=== PATIENT | male | born 1995 | race Caucasian/White ===

== ENCOUNTER 2018-02-18 21:45 | Emergency (ER) | payer OTHER ==
[~2018-02-18 21:45] MED LIST: ACET-1718 PO; CLIN300C99 PO; HYDR25SU34 RC; IBUP600T22 PO; ONDA4TAB PO; OXYC-865 PO; PRED20TA6 PO; ROBC PO
--- NOTE | 2018-02-18 21:52 | ER Report ---
History and Physical Time Seen By MD: 21:49 HPI/ROS CHIEF COMPLAINT: Left testicular pain HISTORY OF PRESENT ILLNESS: 22-year-old male presents ambulatory to the ER complaining of left testicular pain intermittently for one week since he had left shoulder surgery for repair of a labral tear. Patient's orthopedic doctor advises no NSAIDs. Patient notes no dysuria, no hematuria. REVIEW OF SYSTEMS: Respiratory: No cough, no dyspnea. Cardiovascular: No chest pain, no palpitations. Gastrointestinal: No vomiting, no abdominal pain. Musculoskeletal: No back pain. Allergies: Coded Allergies: No Known Drug Allergies (Unverified , 10/09/16) Home Meds Active Scripts Cephalexin Monohydrate (CEPHALEXIN) 500 Mg Cap, 500 MG PO TID for infection, #20 CAP TAKE 1 CAPSULE BY MOUTH EVERY SIX HOURS Prov:TUAN NIÑO DO 02/18/18 Oxycodone Hcl/Acetaminophen (PERCOCET 5-325 MG TABLET) 1 Each Tablet, 1 EACH PO Q4-6H PRN for PAIN, #20 Prov:TUAN NIÑO DO 10/09/16 Reviewed Nurses Notes: Yes Old Medical Records Reviewed: Yes Hx Smoking: Yes Smoking Status: Never Smoker Exposure to Second Hand Smoke?: No Hx Substance Use Disorder: No Hx Alcohol Use: No Constitutional Vital Sign - Last 24 Hours 02/18/18 02/18/18 02/18/18 02/18/18 21:45 21:50 21:55 22:00 Temp 98.8 Pulse ??? 112 Resp 17 B/P (MAP) 146/76 146/76 (99) 139/78 (98) Pulse Ox 93 O2 Delivery Room Air 02/18/18 02/18/18 02/18/18 02/18/18 22:15 22:30 22:35 23:05 Pulse 106 104 108 B/P (MAP) 130/69 (89) Pulse Ox 89 90 92 02/18/18 02/18/18 02/18/18 23:20 23:30 23:35 Pulse 107 105 B/P (MAP) 112/67 (82) Pulse Ox 91 90 Physical Exam Vital signs stable, afebrile, pulse ox normal General Appearance: The patient is alert, has no immediate need for airway protection and no current signs of toxicity. Vital signs stable, afebrile, pulse ox normal Eyes: Pupils equal and round no injection. Respiratory: Chest is non tender, lungs are clear to auscultation. Cardiac: regular rate and rhythm Gastrointestinal: Abdomen is soft and non tender, no masses, bowel sounds normal. Genital: Circumcised male genitalia. There is tenderness of the left testicular area, especially over the epididymis. Steric reflexes intact. There is no meatal discharge. There is no inguinal lymphadenopathy. Musculoskeletal: Neck: Neck is supple and non tender. Extremities have full range of motion and are non tender. Skin: No rashes or lesions. DIFFERENTIAL DIAGNOSIS: After history and physical exam differential diagnosis was considered for testicular pain including but not limited to epididymitis, orchitis, referred pain from kidney stone, inguinal hernia, and torsion of the testicle. Medical Decision Making Data Points Laboratory Hematology Test 02/18/18 21:50 Urine Color Yellow Urine Clarity Clear Urine pH 5.0 pH (4.8-9.5) Urine Specific [place] 1.026 Urine Protein Negative mg/dL (NEGATIVE) Urine Glucose (UA) Negative mg/dL (NEGATIVE) Urine Ketones Negative mg/dL (NEGATIVE) Urine Blood Negative (NEGATIVE) Urine Nitrite Negative (NEGATIVE) Urine Bilirubin Negative (NEGATIVE) Urine Urobilinogen 2.0 mg/dL (0.2-1.9) Urine Leukocyte Esterase Negative (NEGATIVE) Urine RBC None /HPF (0-2/HPF) Urine WBC <1 /HPF (0-5/HPF) Urine Squamous Epithelial Cells None /LPF (</=FEW) Urine Bacteria Negative /HPF (NONE-FEW) Urine Mucus Few /HPF (NONE-FEW) Chemistry Test 02/18/18 21:50 Urine Color Yellow Urine Clarity Clear Urine pH 5.0 pH (4.8-9.5) Urine Specific [place] 1.026 Urine Protein Negative mg/dL (NEGATIVE) Urine Glucose (UA) Negative mg/dL (NEGATIVE) Urine Ketones Negative mg/dL (NEGATIVE) Urine Blood Negative (NEGATIVE) Urine Nitrite Negative (NEGATIVE) Urine Bilirubin Negative (NEGATIVE) Urine Urobilinogen 2.0 mg/dL (0.2-1.9) Urine Leukocyte Esterase Negative (NEGATIVE) Urine RBC None /HPF (0-2/HPF) Urine WBC <1 /HPF (0-5/HPF) Urine Squamous Epithelial Cells None /LPF (</=FEW) Urine Bacteria Negative /HPF (NONE-FEW) Urine Mucus Few /HPF (NONE-FEW) Urinalysis Test 02/18/18 21:50 Urine Color Yellow Urine Clarity Clear Urine pH 5.0 pH (4.8-9.5) Urine Specific [place] 1.026 Urine Protein Negative mg/dL (NEGATIVE) Urine Glucose (UA) Negative mg/dL (NEGATIVE) Urine Ketones Negative mg/dL (NEGATIVE) Urine Blood Negative (NEGATIVE) Urine Nitrite Negative (NEGATIVE) Urine Bilirubin Negative (NEGATIVE) Urine Urobilinogen 2.0 mg/dL (0.2-1.9) Urine Leukocyte Esterase Negative (NEGATIVE) Urine RBC None /HPF (0-2/HPF) Urine WBC <1 /HPF (0-5/HPF) Urine Squamous Epithelial Cells None /LPF (</=FEW) Urine Bacteria Negative /HPF (NONE-FEW) Urine Mucus Few /HPF (NONE-FEW) EKG/Imaging Imaging Results: Ultrasound of the testicular ultrasound was obtained. The results of the study are TESTICULAR HISTORY: Left testicular pain for several days. COMPARISON: None. FINDINGS: RIGHT: Testis: Right testicle is normal in echogenicity. It measures 5.2 x 2.4 x 3.8 cm. There is normal arterial and venous flow. Epididymis: Heterogeneously hyperechoic. The epididymal head measures 1.3 cm. Blood flow is unremarkable by color Doppler ultrasound. Hemiscrotum: Normal. LEFT: Testis: Left testicle is normal in echogenicity. It measures 4.4 x 2.4 x 3.5 cm. There is normal arterial and venous flow. Epididymis: Heterogeneously hyperechoic. The epididymal head measures 1.4 cm. Blood flow is unremarkable by color Doppler ultrasound. There is a 3 mm epididymal head cyst. Hemiscrotum: There is a varicocele. IMPRESSION: 1. Unremarkable appearance of the testicles. 2. Left varicocele. 3. Small left epididymal head cyst. 4. Both epididymides are heterogeneously hyperechoic but have a normal vascular flow. Finds could be sequela of prior epididymitis. The study was read by the radiologist. I viewed the images myself on the PACS system. ED Course/Re-evaluation ED Course Patient was admitted to an examination room. H&P was done. The differential diagnoses was considered. Patient with left testicular pain for one week. It seems unlikely to be a torsion. The patient's pain is worse tonight which prompted him to come in for evaluation. Patient notes no meatal discharge or burning with urination. Patient recently had surgery on his left shoulder. He is nylon take any NSAIDs well. There's healing of his labral tear that which was repaired. Patient notes no fever or chills. Patient's urinalysis is unremarkable. A testicular ultrasound was performed to rule out torsion, which is unremarkable. He has changes on the ultrasound, suspicious for epididymitis. He's covered with Keflex for infection. Patient's advised to follow-up with urology if his symptoms persist. Decision to Disposition Date: Feb 18, 2018 Decision to Disposition Time: 23:17 Depart Departure Latest Vital Signs Vital Signs Date Time Temp Pulse Resp B/P (MAP) Pulse Ox O2 Delivery O2 Flow Rate FiO2 02/18/18 23:35 105 90 02/18/18 23:30 112/67 (82) 02/18/18 21:50 98.8 17 Room Air Impression: Primary Impression: Epididymitis, left Additional Impression: Status post shoulder surgery Condition: Improved Disposition: HOME OR SELF-CARE Referrals: REAGAN AGUILAR MD, ERIC J MD New Scripts Cephalexin Monohydrate (CEPHALEXIN) 500 Mg Cap 500 MG PO TID for infection, #20 CAP TAKE 1 CAPSULE BY MOUTH EVERY SIX HOURS Prov: TUAN NIÑO DO 02/18/18 Patient Instructions: Epididymitis (ED) Additional Instructions: Finished taking antibiotics Consider warm soaks in a bathtub apply heating pad to your testicles on low Follow-up with urology if unimproved in 4-5 days Problem Qualifiers TUAN NIÑO DO Feb 18, 2018 21:52
[2018-02-18] MEDS ORDERED: CEPH500C24 PO (23:19)
[2018-02-18] MEDS ORDERED: CEPHALEXIN MONO 500 MG CAP PO ONE (23:25)
[2018-02-18 23:30] VITALS: BP 112/67
--- NOTE | 2018-02-18 23:33 | RADIOLOGY IMAGING REPORT ---
FACILITY: [facility] PATIENT NAME: Wm Salas : 1995 MR: [id number] V: [id number] EXAM DATE: ORDERING PHYSICIAN: TUAN NIÑO TECHNOLOGIST: Location: [facility] [place] Patient: Wm Salas : 1995 Visit/Account:[id number] Date of Sevice: 02/18/2018 TESTICULAR HISTORY: Left testicular pain for several days. COMPARISON: None. FINDINGS: RIGHT: Testis: Right testicle is normal in echogenicity. It measures 5.2 x 2.4 x 3.8 cm. There is normal art erial and venous flow. Epididymis: Heterogeneously hyperechoic. The epididymal head measures 1.3 cm. Blood flow is unremarka ble by color Doppler ultrasound. Hemiscrotum: Normal. LEFT: Testis: Left testicle is normal in echogenicity. It measures 4.4 x 2.4 x 3.5 cm. There is normal aubrey rial and venous flow. Epididymis: Heterogeneously hyperechoic. The epididymal head measures 1.4 cm. Blood flow is unremarka ble by color Doppler ultrasound. There is a 3 mm epididymal head cyst. Hemiscrotum: There is a varicocele. IMPRESSION: 1. Unremarkable appearance of the testicles. 2. Left varicocele. 3. Small left epididymal head cyst. 4. Both epididymides are heterogeneously hyperechoic but have a normal vascular flow. Finds could be sequela of prior epididymitis. Report Dictated By: Viviana Kraus at 02/18/2018 11:26 PM Report E-Signed By: Viviana Kraus at 02/18/2018 11:30 PM WSN:[id number]
== END 2018-02-18 23:48 | disposition home or self-care (01) ==
LOC: ER 22:21
DX: N45.1 Epididymitis (principal); Z98.890 Other specified postprocedural states
CPT/HCPCS: 76870; 81001; 99284